=== PATIENT | male | born 1955 | race African-American/Black ===

== ENCOUNTER 2023-04-17 11:01 | Inpatient (IN) | payer MEDICARE ==
[~2023-04-17] VITALS: Ht 162.6 cm; Wt 57.2 kg
[2023-04-17] MEDS ORDERED: ALLO100T56 PO (11:18)
[2023-04-17] MEDS ORDERED: OMEP20TA5 PO (11:18)
[2023-04-17] MEDS ORDERED: TAMS-3 PO (11:18)
[2023-04-17] MEDS ORDERED: AMLO-212 PO (11:18)
[2023-04-17 11:38] LABS: BASOPHILS # (AUTO) 0.1 K/UL (0.0-0.2); EOSINOPHILS # (AUTO) 0.1 K/uL (0.0-0.7); EOSINOPHILS % (AUTO) 1.1 % (0.0-7.0); HEMATOCRIT 37.3 % (36.7-47.1); HEMOGLOBIN 11.9 g/dL (12.5-16.3); LYMPHOCYTES % (AUTO) 18.2 % (20.5-51.5); MEAN CORPUSCULAR HEMOGLOBIN 21.2 uug (23.8-33.4); MEAN CORPUSCULAR HGB CONC 32 g/dL (32.5-36.3); MEAN CORPUSCULAR VOLUME 66.8 fL (73.0-96.2); MONOCYTES # (AUTO) 0.3 K/uL (0.1-1.30); MONOCYTES % (AUTO) 5.1 % (0.0-11.0); NEUTROPHILS % (AUTO) 74.6 % (38.5-71.5); PLATELET COUNT (AUTO) 173 K/uL (152-348); RED BLOOD CELL COUNT(AUTO) 5.59 MIL/uL (4.06-5.63); RED CELL DISTRIBUTION WIDTH 17.5 % (12.1-16.2); WHITE BLOOD COUNT (AUTO) 5.3 K/uL (3.6-10.2)
[2023-04-17 11:46] LABS: DIFFERENTIAL COMMENT 1
[2023-04-17 11:53] LABS: CALCIUM 6.9 mg/dL (8.5-10.1); CARBON DIOXIDE 29 mmol/L (21-32); CHLORIDE 102 mmol/L (98-107); CREATININE 1.1 mg/dL (0.6-1.3); ETHANOL < 3 MG/DL (0-10); GLUCOSE 163 mg/dL (74-106); POTASSIUM 3.7 mmol/L (3.5-5.1); SODIUM SERUM 140 mmol/L (136-145); UREA NITROGEN, BLOOD 13 mg/dL (7-18)
[2023-04-17 12:05] LABS: ALANINE AMINOTRANSFERASE 19 U/L (16-63); ALBUMIN 3.7 g/dL (3.4-5.0); ALKALINE PHOSPHATASE 58 U/L (50-136); ASPARTATE AMINOTRANSFERASE 16 U/L (15-37); BILIRUBIN,DIRECT 0.2 mg/dL (0.0-0.2); BILIRUBIN,TOTAL 0.6 mg/dL (0.2-1.0); TOTAL PROTEIN, SERUM 7.3 g/dL (6.4-8.2)
[2023-04-17 12:33] LABS: *BILIRUBIN,URIN NEGATIVE (NEGATIVE); *BLOOD, URINE NEGATIVE (NEGATIVE); *CLARITY,URINE CLEAR (CLEAR); *COLOR,URINE YELLOW (YELLOW); *KETONES,URINE NEGATIVE (NEGATIVE); *PROTEIN,URINE NEGATIVE (NEGATIVE); *UROBILINOGEN,URINE 0.2 E.U./dl (NORMAL); LEUKOCYTE ESTERASE ,URINE NEGATIVE (NEGATIVE); NITRITE, URINE NEGATIVE (NEGATIVE); UGLUCOSE NEGATIVE (NEGATIVE)
[2023-04-17 12:46] LABS: *AMPHETAMINE, URINE NEGATIVE (NEGATIVE); *BARBITURATE, URINE NEGATIVE (NEGATIVE); *BENZODIAZEPINE, URINE NEGATIVE (NEGATIVE); *CANNABINOID, URINE NEGATIVE (NEGATIVE); *COCCAINE, URINE NEGATIVE (NEGATIVE); *OPIATE, URINE NEGATIVE (NEGATIVE); *PHENCYCLIDINE SCREEN,URINE NEGATIVE (NEGATIVE); FENTANYL, URINE NEGATIVE (NEGATIVE)
[2023-04-17] MEDS ORDERED: MAG HYDROX/AL HYDROX/SIMETH 30 ML LIQUID UDC PO PRN (14:00)
[2023-04-17] MEDS ORDERED: ACETAMINOPHEN 325 MG TABLET PO PRN (14:00)
[2023-04-17] MEDS ORDERED: MAGNESIUM HYDROXIDE 30 ML LIQUID UDC PO PRN (14:00)
[2023-04-17] MEDS ORDERED: TEMAZEPAM 7.5 MG CAPSULE PO PRN (14:00)
[2023-04-17] MEDS ORDERED: BLOOD SUGAR DIAGNOSTIC 1 EACH STRIP VI ONE (14:00)
[2023-04-17] MEDS ORDERED: LORAZEPAM 0.5 MG TABLET PO PRN (14:00)
[2023-04-17 15:42] VITALS: BP 158/77; TEMP 97.8; O2SAT 99
[2023-04-17 20:03] VITALS: BP 123/66; TEMP 98.1; O2SAT 99
[2023-04-18] MEDS: PANTOPRAZOLE SODIUM 40 MG TABLET.DR PO SCH (07:00)
[2023-04-18 07:50] LABS: BASOPHILS % (AUTO) 0.5 % (0.0-2.0); EOSINOPHILS # (AUTO) 0.1 K/uL (0.0-0.7); EOSINOPHILS % (AUTO) 1.5 % (0.0-7.0); HEMATOCRIT 36.1 % (36.7-47.1); HEMOGLOBIN 11.5 g/dL (12.5-16.3); LYMPHOCYTES # (AUTO) 1.2 K/uL (0.8-4.8); LYMPHOCYTES % (AUTO) 20.8 % (20.5-51.5); MEAN CORPUSCULAR HEMOGLOBIN 21.5 uug (23.8-33.4); MEAN CORPUSCULAR HGB CONC 32 g/dL (32.5-36.3); MONOCYTES # (AUTO) 0.5 K/uL (0.1-1.30); MONOCYTES % (AUTO) 9.7 % (0.0-11.0); NEUTROPHILS # (AUTO) 3.8 K/uL (1.8-8.9); NEUTROPHILS % (AUTO) 67.5 % (38.5-71.5); PLATELET COUNT (AUTO) 143 K/uL (152-348); RED BLOOD CELL COUNT(AUTO) 5.38 MIL/uL (4.06-5.63); RED CELL DISTRIBUTION WIDTH 17.8 % (12.1-16.2); WHITE BLOOD COUNT (AUTO) 5.6 K/uL (3.6-10.2)
[2023-04-18 07:58] LABS: DIFFERENTIAL COMMENT 1
[2023-04-18 08:00] VITALS: BP 133/66; TEMP 97.2; O2SAT 97
[2023-04-18 08:04] LABS: ALBUMIN 3.7 g/dL (3.4-5.0); BILIRUBIN,TOTAL 0.7 mg/dL (0.2-1.0); CALCIUM 6.7 mg/dL (8.5-10.1); CREATININE 1.1 mg/dL (0.6-1.3); POTASSIUM 3.7 mmol/L (3.5-5.1); TOTAL PROTEIN, SERUM 7.2 g/dL (6.4-8.2)
[2023-04-18] MEDS ORDERED: Medication Not On Formulary EA (Omeprazole 1 TAB) PO SCH (09:00)
[2023-04-18] MEDS ORDERED: OLANZAPINE 2.5 MG TABLET PO PRN (09:15)
[2023-04-18] MEDS: ALLOPURINOL 100 MG TABLET PO SCH (09:21)
[2023-04-18] MEDS: AMLODIPINE 5 MG TABLET PO SCH (09:22)
[2023-04-18 11:25] LABS: THYROID STIMULATING HORMONE 0.795 mIU/mL (0.358-3.740)
[2023-04-18] MEDS: CARBAMIDE PEROXIDE OTIC DROP 15 ML BOTTLE EACH EAR SCH ×3 (12:04→20:42)
[2023-04-18] MEDS: SERTRALINE HCL 50 MG TABLET PO SCH (12:48)
[2023-04-18 18:39] LABS: BASOPHILS # (AUTO) 0.1 K/UL (0.0-0.2); BASOPHILS % (AUTO) 0.8 % (0.0-2.0); EOSINOPHILS % (AUTO) 0.5 % (0.0-7.0); HEMATOCRIT 37.8 % (36.7-47.1); LYMPHOCYTES # (AUTO) 0.6 K/uL (0.8-4.8); LYMPHOCYTES % (AUTO) 8.7 % (20.5-51.5); MEAN CORPUSCULAR HEMOGLOBIN 21.3 uug (23.8-33.4); MEAN CORPUSCULAR HGB CONC 32 g/dL (32.5-36.3); MEAN CORPUSCULAR VOLUME 66.9 fL (73.0-96.2); MONOCYTES # (AUTO) 0.5 K/uL (0.1-1.30); MONOCYTES % (AUTO) 7.3 % (0.0-11.0); NEUTROPHILS # (AUTO) 6.1 K/uL (1.8-8.9); NEUTROPHILS % (AUTO) 82.7 % (38.5-71.5); PLATELET COUNT (AUTO) 154 K/uL (152-348); RED BLOOD CELL COUNT(AUTO) 5.65 MIL/uL (4.06-5.63); RED CELL DISTRIBUTION WIDTH 17.9 % (12.1-16.2); WHITE BLOOD COUNT (AUTO) 7.4 K/uL (3.6-10.2)
[2023-04-18 18:48] LABS: CALCIUM 6.9 mg/dL (8.5-10.1); CREATININE 1.1 mg/dL (0.6-1.3); POTASSIUM 3.5 mmol/L (3.5-5.1)
[2023-04-18 18:58] LABS: NUCLEATED RED BLOOD CELLS 0.1 /100WBC
[2023-04-18 20:00] VITALS: BP 146/70; TEMP 97.7; O2SAT 98
[2023-04-18] MEDS: TAMSULOSIN HCL 0.4 MG CAP.SR.24H PO SCH (20:33)
[2023-04-18] MEDS: OLANZAPINE 2.5 MG TABLET PO SCH (20:33)
[2023-04-18 22:38] LABS: ANISOCYTOSIS 1+; HYPOCHROMASIA 2+; LYMPHOCYTES % (MANUAL) 8 % (20-40); MONOCYTES % (MANUAL) 4 % (2-10); NEUTROPHILS % (MANUAL) 88 % (42-75); PLATELET ESTIMATE ADEQUATE
[2023-04-19] MEDS: PANTOPRAZOLE SODIUM 40 MG TABLET.DR PO SCH (06:23)
[2023-04-19 08:03] VITALS: BP 152/80; TEMP 98.2; O2SAT 98
[2023-04-19] MEDS: CALCIUM CARB/VITAMIN D 500MG-200UNITS TABLET PO SCH (09:15)
[2023-04-19] MEDS: ALLOPURINOL 100 MG TABLET PO SCH (09:15)
[2023-04-19] MEDS: CARBAMIDE PEROXIDE OTIC DROP 15 ML BOTTLE EACH EAR SCH ×2 (09:16→22:02)
[2023-04-19] MEDS: AMLODIPINE 5 MG TABLET PO SCH (09:16)
[2023-04-19] MEDS: SERTRALINE HCL 50 MG TABLET PO SCH ×2 (12:25→13:42)
[2023-04-19 15:21] VITALS: BP 146/71; TEMP 98.2; O2SAT 99
[2023-04-19 20:11] VITALS: BP 142/76; TEMP 98.2; O2SAT 98
[2023-04-19] MEDS: OLANZAPINE 2.5 MG TABLET PO SCH (22:01)
[2023-04-19] MEDS: TAMSULOSIN HCL 0.4 MG CAP.SR.24H PO SCH (22:02)
[2023-04-20] MEDS: PANTOPRAZOLE SODIUM 40 MG TABLET.DR PO SCH (07:00)
[2023-04-20 08:00] VITALS: BP 135/84; TEMP 97.6; O2SAT 98
[2023-04-20] MEDS: ALLOPURINOL 100 MG TABLET PO SCH (08:44)
[2023-04-20] MEDS: AMLODIPINE 5 MG TABLET PO SCH (08:45)
[2023-04-20] MEDS: CALCIUM CARB/VITAMIN D 500MG-200UNITS TABLET PO SCH (08:45)
[2023-04-20] MEDS: CARBAMIDE PEROXIDE OTIC DROP 15 ML BOTTLE EACH EAR SCH ×2 (08:46→21:23)
[2023-04-20] MEDS: SERTRALINE HCL 50 MG TABLET PO SCH (12:37)
[2023-04-20 16:00] VITALS: BP 150/70; TEMP 97.6; O2SAT 97
[2023-04-20 20:15] VITALS: BP 140/82; TEMP 97.8; O2SAT 96
[2023-04-20] MEDS: TAMSULOSIN HCL 0.4 MG CAP.SR.24H PO SCH (21:15)
[2023-04-20] MEDS: OLANZAPINE 2.5 MG TABLET PO SCH (21:16)
[2023-04-21] MEDS: PANTOPRAZOLE SODIUM 40 MG TABLET.DR PO SCH (06:59)
[2023-04-21 07:46] VITALS: BP 143/81; TEMP 98; O2SAT 98
[2023-04-21] MEDS: ALLOPURINOL 100 MG TABLET PO SCH (09:03)
[2023-04-21] MEDS: AMLODIPINE 5 MG TABLET PO SCH (09:03)
[2023-04-21] MEDS: CALCIUM CARB/VITAMIN D 500MG-200UNITS TABLET PO SCH (09:03)
[2023-04-21] MEDS: CARBAMIDE PEROXIDE OTIC DROP 15 ML BOTTLE EACH EAR SCH ×2 (09:04→20:31)
[2023-04-21] MEDS: SERTRALINE HCL 50 MG TABLET PO SCH (12:50)
[2023-04-21 16:52] VITALS: BP 145/74; TEMP 98.1; O2SAT 98
[2023-04-21 20:20] VITALS: BP 134/77; TEMP 98.4; O2SAT 96
[2023-04-21] MEDS: TAMSULOSIN HCL 0.4 MG CAP.SR.24H PO SCH (20:31)
[2023-04-21] MEDS: OLANZAPINE 2.5 MG TABLET PO SCH (20:31)
[2023-04-22] MEDS: PANTOPRAZOLE SODIUM 40 MG TABLET.DR PO SCH (06:28)
[2023-04-22 07:59] VITALS: BP 131/74; TEMP 98.1; O2SAT 98
[2023-04-22] MEDS: CALCIUM CARB/VITAMIN D 500MG-200UNITS TABLET PO SCH (09:00)
[2023-04-22] MEDS: ALLOPURINOL 100 MG TABLET PO SCH (09:02)
[2023-04-22] MEDS: AMLODIPINE 5 MG TABLET PO SCH (09:03)
[2023-04-22] MEDS: SERTRALINE HCL 50 MG TABLET PO SCH (12:48)
[2023-04-22 16:06] VITALS: BP 144/74; TEMP 98; O2SAT 98
[2023-04-23] MEDS ORDERED: GLUCERNA SHAKE 237 ML CAN PO SCH (09:00)
== END 2023-04-22 18:00 | disposition home or self-care (01) | DRG 885 ==
LOC: ER 11:01 → GPS 13:39
PROVIDERS: ADMIT Psychiatry & Neurology Psychosomatic Medicine; ATTEND Nurse Practitioner Acute Care
DX: F33.9 Major depressive disorder, recurrent, unspecified (principal); R45.851 Suicidal ideations; F03.94 Unspecified dementia, unspecified severity, with anxiety; F03.92 Unspecified dementia, unspecified severity, with psychotic disturbance; M10.9 Gout, unspecified; E83.51 Hypocalcemia; N40.0 Benign prostatic hyperplasia without lower urinary tract symptoms; I10 Essential (primary) hypertension; Z79.899 Other long term (current) drug therapy
CPT/HCPCS: 36415; 70030-TC; 82747; 83921; 84443; 85014; 85025; G0480; J8499